=== PATIENT | male | born 1930 ===

== ENCOUNTER 2017-09-13 09:58 | Inpatient (IN) ==
[2017-09-13] MEDS ORDERED: ceFAZolin 2 GM Premix Inj 2 GM/50 ML PIGGYBACK IV.SIG ONE ×2 (10:04→11:11)
[2017-09-13] MEDS ORDERED: Diphtheria/Tetanus/Pertussis Vaccine Inj 0.5 ML Syringe IM ONE (10:04)
[2017-09-13 10:21] LABS: Baso # (Auto) 0.1 th/mm3 (0.0-0.2); Eos # (Auto) 0.2 th/mm3 (0.0-0.4); Eos % (Auto) 3.2 % (0.0-4.0); Hematocrit 39.1 % (39.0-51.0); Hemoglobin 13.5 gm/dL (13.0-17.0); Lymph # (Auto) 1.7 th/mm3 (1.0-4.8); Lymph % (Auto) 23.9 % (9.0-44.0); Mean Corpuscular HGB Conc 34.5 % (32.0-36.0); Mono # (Auto) 0.8 th/mm3 (0.0-0.9); Mono % (Auto) 11.3 % (0.0-8.0); Neut # (Auto) 4.4 th/mm3 (1.8-7.7); Neut % (Auto) 60.6 % (16.0-70.0); Platelet Count 189 th/mm3 (150-450); Red Blood Count 4.35 mil/mm3 (4.50-5.90); Red Cell Distribution Width 14.1 % (11.6-17.2); White Blood Count 7.3 th/mm3 (4.0-11.0)
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
[2017-09-13 10:39] LABS: Activated Partial Thrombo Time 25.2 sec (24.3-30.1); INR 1.1 Ratio; Prothrombin Time 10.9 sec (9.8-11.6)
[2017-09-13] MEDS ORDERED: Morphine Inj 4 MG/ML Vial IV.PUSH PRN (10:56)
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
[2017-09-13] MEDS ORDERED: Dextrose 50% in Water 50 ML Vial IV.PUSH PRN (11:08)
--- NOTE | 2017-09-13 11:11 | P.PNPOD ---
Subjective Interval history: Spoke with trauma regarding patient details. Physical Exam Vital signs: Vital Signs 09/13/17 10:10 Pulse Oximetry 98 Intake & Output 09/12/17 09/13/17 09/13/17 18:59 06:59 18:59 Weight 79.379 kg Medications and Allergies Active Medications: Active Medications Hydrocodone Bitart/Acetaminophen ([place] 5/325) 1 tab PO Q4H PRN PRN Reason: Pain 1-5 Chlorhexidine Gluconate (Chlorhexidine 2% Cloth) 3 pack TOPICAL DAILY@0400 ADA Stop: 09/19/17 03:59 Chlorhexidine Gluconate (Chlorhexidine 2% Cloth) 3 pack TOPICAL DAILY@0400 PRN PRN Reason: Extra cloth needed Stop: 09/19/17 03:59 Docusate Sodium (Colace) 100 mg PO BID ADA Enalaprilat (Vasotec Inj) 1.25 mg IV.PUSH Q8H PRN PRN Reason: Blood pressure 180/95 Sodium Chloride (Ns Inj) 1,000 mls @ 100 mls/hr IV.CONT .Q10H ADA Morphine Sulfate (Morphine Inj) 2 mg IV.PUSH Q1H PRN PRN Reason: Break through pain Ondansetron HCl (Zofran Inj) 4 mg IV.PUSH Q6H PRN PRN Reason: NAUSEA OR VOMITING Sodium Chloride (Ns Flush) 2 ml IV.FLUSH UNSCH PRN PRN Reason: FLUSH AFTER USING IV ACCESS Allergies Allergy/AdvReac Type Severity Reaction Status Date / Time No Allergy Information Allergy Unverified 09/13/17 10:01 Available Results - Labs CBC & Chem 7: 09/13/17 10:05 Laboratory Results - last 24 hr 09/13/17 09/13/17 09/13/17 10:05 10:05 10:05 WBC 7.3 RBC 4.35 L Hgb 13.5 POC Hgb (Calc) 12.6 L Hct 39.1 POC Hct 37.0 L MCV 90.0 MCH 31.0 MCHC 34.5 RDW 14.1 Plt Count 189 MPV 10.0 Neut % (Auto) 60.6 Lymph % (Auto) 23.9 [place] % (Auto) 11.3 H Eos % (Auto) 3.2 Baso % (Auto) 1.0 Neut # (Auto) 4.4 Lymph # (Auto) 1.7 Winston # (Auto) 0.8 Eos # (Auto) 0.2 Baso # (Auto) 0.1 WBC Differential . Differential Comment Auto diff final PT 10.9 INR 1.1 APTT 25.2 POC Sodium 135 L POC Potassium 5.5 H POC Chloride 102 POC BUN 29 H POC Creatinine 1.1 POC Glucose 182 H Blood Type MTS Gel Crossmatch 09/13/17 10:05 WBC RBC Hgb POC Hgb (Calc) Hct POC Hct MCV MCH MCHC RDW Plt Count MPV Neut % (Auto) Lymph % (Auto) [place] % (Auto) Eos % (Auto) Baso % (Auto) Neut # (Auto) Lymph # (Auto) Winston # (Auto) Eos # (Auto) Baso # (Auto) WBC Differential Differential Comment PT INR APTT POC Sodium POC Potassium POC Chloride POC BUN POC Creatinine POC Glucose Blood Type A Negative MTS Gel Crossmatch See Detail - Imaging Impressions Ankle CT 09/13/17 00:00 CONCLUSION: 1. Ankle mortise intact. 2. Laceration of the soft tissues of the distal leg and hindfoot medially. 3. Avulsion fractures from the lateral calcaneus and cuboid near the calcaneocuboid joint. Foot CT 09/13/17 00:00 CONCLUSION: 1. Small avulsion fractures of the lateral calcaneus and cuboid near the calcaneocuboid joint. 2. Mildly displaced fracture through the distal lateral cuboid extending into the tarsometatarsal joints. 3. Transverse fracture through the proximal fifth metatarsal shaft as well as lateral avulsion fracture of the proximal fifth metatarsal. 4. Slightly comminuted fracture proximal fourth metatarsal with probable tiny avulsion fracture of the lateral cuneiform. 5. No dislocation at the tarsometatarsal joints. Chest X-Ray 09/13/17 10:01 CONCLUSION: No acute disease Pelvis X-Ray 09/13/17 10:01 CONCLUSION: No acute fracture Abdomen/Pelvis CT 09/13/17 10:07 CONCLUSION: 1. No acute abdominal visceral injury. 2. Right renal cyst, bladder diverticulum and left inguinal hernia. Cervical Spine CT 09/13/17 10:07 CONCLUSION: 1. Multilevel degenerative changes. 2. No fracture. Chest CT 09/13/17 10:07 CONCLUSION: 1. No acute thoracic injury Head CT 09/13/17 10:07 CONCLUSION: 1. No acute findings. Cortical volume loss. . Tibia/Fibula X-Ray 09/13/17 10:07 CONCLUSION: Lower right leg laceration with probable avulsion fractures below the lateral malleolus. Lateral metatarsal fracture incompletely evaluated. Assessment and Plan - Plan To OR 330 pm for I&D Right leg, ankle, and foot with possible exfix Consultation to follow
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
[2017-09-13] MEDS: Sod Chloride 0.9% Inj 1,000 ML IV.CONT SCH ×2 (11:54→21:21)
[2017-09-13] MEDS ORDERED: Glycopyrrolate Inj 1 MG/5 ML Syringe IV.PUSH ONE (12:00)
[2017-09-13] MEDS ORDERED: Lidocaine PF 1% Inj 5 ML Syringe INFILTRATN ONE (12:00)
[2017-09-13] MEDS ORDERED: Phenylephrine/NS 1000 MCG/10ML Syringe IV.PUSH ONE (12:00)
[2017-09-13] MEDS ORDERED: Neostigmine Inj 5 MG/5 ML Syringe IV.PUSH ONE (12:00)
--- NOTE | 2017-09-13 12:49 | XR ---
EXAM DATE: 09/13/2017 12:44 PM EDT AGE/SEX: 89 years / Male INDICATIONS: Right foot pain. Trauma alert. CLINICAL DATA: This is the patient's subsequent encounter. Patient reports that signs and symptoms h ave been present for 1 day and indicates a pain score of 9/10. MEDICAL/SURGICAL HISTORY: Non-responsive. Non-responsive. COMPARISON: [facility], TIBIA FIBULA RIGHT 2V, 09/13/2017. . FINDINGS: 2 views of the foot demonstrate soft tissue and bony injury to the distal aspect of the great toe. Th e canal appears to be partially avulsed and there is suggestion of a comminuted fracture through the distal phalanx with intra-articular extension medially. CONCLUSION: 1. Soft tissue and bony trauma to the distal aspect of the great toe as above. 2. Comminuted fracture of the distal phalanx with medial intra-articular extension. Partial avulsion of the nail Electronically signed by: Souleymane Mathews MD 09/13/2017 12:48 PM EDT
[2017-09-13] MEDS: Insulin NovoLIN Regular Correctional Sugar Inj SQ SCH ×2 (13:10→19:24)
[2017-09-13] MEDS ORDERED: ceFAZolin 2 GM/NS 100 ML IV; Q8H IV.SIG ONE ×2 (16:00)
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
--- NOTE | 2017-09-13 17:38 | P.BOP ---
- Preoperative Diagnosis (1) Fracture of fifth metatarsal bone of right foot (2) Fracture of cuboid bone of right foot with routine healing (3) Laceration of right lower leg with foreign body - Postoperative Diagnosis (1) Fracture of cuboid bone of right foot with routine healing (2) Fracture of fifth metatarsal bone of right foot (3) Laceration of foot, right (4) Laceration of right lower leg with foreign body Date of procedure: 09/13/17 Procedure: 1. Irrigation and debridement right foot with closure of complex laceration 2. External fixation right foot fractures Right anterior lower leg with degloving injury originating medially, and traveling laterally across anterior ankle area in superficial fat layer. No exposed bone noted within degloved area. Deep vessels remain intact. No gross contamination or debris noted. Tissue appears viable and bleedings readily. No large vessel involvement noted. Degloving continues distally and medially to medial rearfoot area, but not including any deep tendinous or neurovascular structures here. There is another puncture area with mild degloving to dorsal forefoot extending from dorsal 1st interspace to dorsal 3rd interspace area. Lateral aspect of forefoot, midfoot, and hindfoot remain closed, and this is where fractures are noted. Degloved areas copiously irrigated with 12L normal saline with gentamicin and excisional debridement of nonviable tissue was performed with #15 blade, curette , and rongeur down to level of healthy bleeding subcutaneous tissue to the large medial/anterior degloved area, as well as the separate area of the dorsal forefoot. Complex closure performed with 2-0 nylon to all degloved areas. No gross contamination noted. All tissue appeared viable. C-arm guidance utilized to place 4.0mm half pin into lateral calcaneus, and 3.0 to 4.0 mm into midshaft 5th metatarsal laterally and dorsal/lateral lateral cuneiform, respectively. Reduction of fracture to 5th metatarsal base and adequate distraction at calcaneocuboid joint visualized under c-arm and external fixator held in place to achieve reduction/stabilization. Small wound vac placed along incision/degloved area margins to assist in reduction of space. Will be left on x 24 hours. Dressing with xeroform, 4x4, abd, cast padding, and short posterior splint with heel offloaded placed to right lower extremity. Will assess tissue for viability in the coming days. Plan to remove wound vac after 24 hours. Do not anticipate further surgery required. Continue IV antibiotics. Will need oral broad spectrum x 2 weeks upon discharge. Will need home health for pin site care and dressing changes upon discharge. Nonweightbearing right lower extremity. May need rehab placement to comply. Implants: see implant log Synthes small exfix Anesthesia: GETA Surgeon: Irina Jara DPM Revolving Inventory Clerk: staff Estimated blood loss (mL): 100 Pathology: none sent Condition: stable Disposition: PACU
[2017-09-13] MEDS ORDERED: *Meperidine Inj 25 MG/ML Vial PERIprocedural Use ONLY ONE (17:43)
[2017-09-13] MEDS ORDERED: fentaNYL Citrate Inj 100 MCG/2 ML Ampul ONE (17:44)
--- NOTE | 2017-09-13 18:17 | XR ---
EXAM DATE: 09/13/2017 6:12 PM EDT AGE/SEX: 87 years / Male INDICATIONS: External fixator placement right ankle. CLINICAL DATA: This is the patient's subsequent encounter. Patient reports that signs and symptoms h ave been present for 1 day and indicates a pain score of Nonresponsive. MEDICAL/SURGICAL HISTORY: . Trauma. None. COMPARISON: [facility], FOOT LIMITED RIGHT 2V, 09/13/2017. . FINDINGS: 2 views in the operating room show external fixation placement across the calcaneus, cuboid and fifth metatarsal base fractures. Alignment is near-anatomic. No evidence of an acute complication. CONCLUSION: External fixation placement of the right foot as above. No evidence of an acute complication. Electronically signed by: Bry Rosa MD 09/13/2017 6:16 PM EDT
[2017-09-13] MEDS ORDERED: Famotidine 20 MG Tablet PO SCH (21:00)
[2017-09-13] MEDS: Ramipril 5 MG Capsule PO SCH (21:21)
[2017-09-13] MEDS: Latanoprost 0.005% Opth Drops 2.5 ML Bottle EACH EYE SCH ×4 (22:25→23:16)
[2017-09-13] MEDS: ceFAZolin 2 GM Premix Inj 2 GM/50 ML PIGGYBACK IV.SIG SCH (23:15)
--- NOTE | 2017-09-13 23:39 | XR ---
EXAM DATE: 09/13/2017 11:31 PM EDT AGE/SEX: 87 years / Male INDICATIONS: Post op right foot ex-fix. CLINICAL DATA: This is the patient's initial encounter. Patient reports that signs and symptoms have been present for 1 day and indicates a pain score of 3/10. MEDICAL/SURGICAL HISTORY: None. None. COMPARISON: [facility], FOOT LIMITED RIGHT 2V, 09/13/2017. . FINDINGS: There is bandage artifact which obscures osseous detail. External fixation hardware is seen at the [place] of the calcaneus, tarsal bones, and across the fifth metatarsal. There is a transverse fracture t hrough the base of the fifth metatarsal, and first distal phalanx fracture. CONCLUSION: External fixation hardware placement. Electronically signed by: Marquez Mendez MD 09/13/2017 11:38 PM EDT
[2017-09-14] MEDS ORDERED: Chlorhexidine Gluconate 2% 1 Pack (2 Cloths) TOPICAL PRN (04:00)
[2017-09-14] MEDS: Chlorhexidine Gluconate 2% 1 Pack (2 Cloths) TOPICAL SCH (05:03)
[2017-09-14 05:12] LABS: Baso % (Auto) 0.4 % (0.0-2.0); Eos # (Auto) 0.1 th/mm3 (0.0-0.4); Hematocrit 31.5 % (39.0-51.0); Hemoglobin 10.9 gm/dL (13.0-17.0); Lymph # (Auto) 1.3 th/mm3 (1.0-4.8); Lymph % (Auto) 15.7 % (9.0-44.0); Mean Corpuscular HGB Conc 34.6 % (32.0-36.0); Mean Corpuscular Hemoglobin 31.9 pg (27.0-34.0); Mean Corpuscular Volume 92.2 fL (80.0-100.0); Mean Platelet Volume 10.4 fL (7.0-11.0); Mono % (Auto) 12.4 % (0.0-8.0); Neut # (Auto) 5.7 th/mm3 (1.8-7.7); Neut % (Auto) 70.5 % (16.0-70.0); Platelet Count 145 th/mm3 (150-450); Red Blood Count 3.41 mil/mm3 (4.50-5.90)
[2017-09-14 05:34] LABS: Carbon Dioxide 23.9 meq/L (21.0-32.0); Potassium 4.6 meq/L (3.5-5.1)
[2017-09-14] MEDS: Insulin NovoLIN Regular Correctional Sugar Inj SQ SCH ×4 (06:58→23:12)
[2017-09-14] MEDS ORDERED: CANAGLIFLOZIN 100 MG PO SCH (09:00)
[2017-09-14] MEDS: Ramipril 5 MG Capsule PO SCH ×2 (10:24→20:09)
[2017-09-14] MEDS: Docusate Sodium 100 MG Capsule PO SCH ×2 (10:25→20:09)
[2017-09-14] MEDS: ceFAZolin 2 GM Premix Inj 2 GM/50 ML PIGGYBACK IV.SIG SCH ×2 (10:25→16:54)
[2017-09-14] MEDS: Famotidine 20 MG Tablet PO SCH ×2 (10:26→20:09)
--- NOTE | 2017-09-14 15:59 | ECG ---
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
[2017-09-14] MEDS: Sod Chloride 0.9% Inj 1,000 ML IV.CONT SCH ×2 (16:53→23:08)
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
--- NOTE | 2017-09-14 19:18 | P.PNPOD ---
Subjective Interval history: s/p I&D R leg degloving injury and external fixation right foot 09/13/17 Dr Jara Resting well, having pain. Physical Exam Vital signs: Vital Signs 09/13/17 19:36 09/13/17 20:00 09/14/17 00:00 Temperature 97.5 F L 97.8 F Pulse Rate 69 80 Respiratory Rate 20 10 L Blood Pressure 139/63 128/59 L Pulse Oximetry 96 98 99 09/14/17 04:00 09/14/17 07:55 09/14/17 08:00 Temperature 98 F 98.7 F Pulse Rate 74 80 Respiratory Rate 14 14 Blood Pressure 154/65 H 157/72 H Pulse Oximetry 98 98 97 09/14/17 10:00 09/14/17 10:48 09/14/17 12:00 Temperature 97.8 F Pulse Rate 88 80 90 Respiratory Rate 14 Blood Pressure 148/68 H Pulse Oximetry 94 L 09/14/17 14:00 09/14/17 16:00 Temperature 98.7 F Pulse Rate 104 H 96 H Respiratory Rate 25 H Blood Pressure 200/86 H Pulse Oximetry 93 L Intake & Output 09/14/17 09/14/17 09/15/17 06:59 18:59 06:59 Intake Total 3304 / 3304 50 / 50 Output Total 575 / 575 Balance 2729 / 2729 50 / 50 Weight 85.2 kg Intake: IV 1050 / 1050 50 / 50 NS Inj 1,000 ML @ 100 mls/hr IV 1000 / 1000 .CONT .Q10H ADA Rx#:[id number] Ancef 2 GM Premix Inj 2 gm In 50 / 50 50 / 50 50 ml @ 100 mls/hr IV.SIG Q8H ADA Rx#:[id number] Oral 560 / 560 Other 1694 / 1694 Output: Urine 500 / 500 Estimated Blood Loss 25 / 25 Wound Vac Amount 50 / 50 Right Leg 50 / 50 Other: Mode Setting Right Leg Continuous Continuous # Bowel Movements 0 Narrative: Right lower anterior/medial leg and ankle wound vac intact and functioning properly. Removed wound vac and applied xeroform, 4x4, abd x 2, cast padding, eric. Left remainder of bandage intact. Neurovascularly intact with sensation and capillary refill to digits right foot. Mild bloody strikethrough to bandage Medications and Allergies Active Medications: Active Medications Hydrocodone Bitart/Acetaminophen ([place] 5/325) 1 tab PO Q4H PRN PRN Reason: Pain 1-5 Hydrocodone Bitart/Acetaminophen ([place] 7.5/325) 1 tab PO Q4H PRN PRN Reason: Acute Pain Last Admin: 09/14/17 16:10 Dose: 1 tab Al Hydroxide/Mg Hydroxide (Milk Of Kkoo Liq) 30 ml PO BID [facility] Last Admin: 09/14/17 10:27 Dose: 30 ml Atorvastatin Calcium (Lipitor) 20 mg PO DAILY [facility] Last Admin: 09/14/17 10:25 Dose: 20 mg Chlorhexidine Gluconate (Chlorhexidine 2% Cloth) 3 pack TOPICAL DAILY@0400 [facility] Stop: 09/19/17 03:59 Last Admin: 09/14/17 05:03 Dose: 3 pack Chlorhexidine Gluconate (Chlorhexidine 2% Cloth) 3 pack TOPICAL DAILY@0400 PRN PRN Reason: Extra cloth needed Stop: 09/19/17 03:59 Dextrose (D50w Vial) 50 ml IV.PUSH UNSCH PRN PRN Reason: PER HYPOGLYCEMIA PROTOCOL Docusate Sodium (Colace) 100 mg PO BID [facility] Last Admin: 09/14/17 10:25 Dose: 100 mg Enalaprilat (Vasotec Inj) 1.25 mg IV.PUSH Q8H PRN PRN Reason: Blood pressure 180/95 Last Admin: 09/13/17 12:07 Dose: 1.25 mg Enoxaparin Sodium (Lovenox Inj) 40 mg SQ DAILY [facility] Famotidine (Pepcid) 10 mg PO BID [facility] Last Admin: 09/14/17 10:26 Dose: 10 mg Glucagon (Glucagon Inj) 1 mg OTHER PRN PRN PRN Reason: for Hypoglycemia Protocol Glyburide (Diabeta) 5 mg PO DAILY [facility] Last Admin: 09/14/17 10:25 Dose: 5 mg Sodium Chloride (Ns Inj) 1,000 mls @ 100 mls/hr IV.CONT .Q10H [facility] Last Admin: 09/14/17 16:53 Dose: Not Given Cefazolin Sodium 2,000 mg/ (Sodium Chloride) 100 mls @ 200 mls/hr IV.SIG Q8H [facility] Insulin Human Regular (Novolin R Correctional Sugar Inj) 0 units SQ Q6HR [facility]; Protocol Last Admin: 09/14/17 15:04 Dose: 2 units Lactulose (Lactulose Liq) 30 ml PO DAILY PRN PRN Reason: CONSTIPATION Latanoprost (Xalatan 0.005% Opth Drops) 1 drop EACH EYE DAILY@1800 [facility] Last Admin: 09/13/17 23:16 Dose: 1 drop [facility]) [facility] Metoprolol Succinate (Toprol Xl) 25 mg PO TID [facility] Last Admin: 09/14/17 15:06 Dose: 25 mg Morphine Sulfate (Morphine Inj) 2 mg IV.PUSH Q1H PRN PRN Reason: Break through pain Last Admin: 09/13/17 12:07 Dose: 2 mg Ondansetron HCl (Zofran Inj) 4 mg IV.PUSH Q6H PRN PRN Reason: NAUSEA OR VOMITING Last Admin: 09/13/17 12:07 Dose: 4 mg Patient Own: ( Canagliflozin [ Invokana] 100 Mg) 0 each PO DAILY [facility] Ramipril (Altace) 10 mg PO BID [facility] Last Admin: 09/14/17 10:24 Dose: 10 mg Sodium Chloride (Ns Flush) 2 ml IV.FLUSH UNSCH PRN PRN Reason: FLUSH AFTER USING IV ACCESS Allergies Allergy/AdvReac Type Severity Reaction Status Date / Time No Known Allergies Allergy Unverified 09/13/17 11:42 Home Medications Medication Instructions Recorded Confirmed Type canagliflozin [Invokana] 100 mg PO DAILY 09/13/17 09/13/17 History glyburide 5 mg PO DAILY 09/13/17 09/13/17 History latanoprost [Xalatan] 1 drp OPHTHALMIC (EYE) QPM 09/13/17 09/13/17 History metformin 1,000 mg PO BID 09/13/17 09/13/17 History metoprolol succinate 25 mg PO TID 09/13/17 09/13/17 History omeprazole magnesium [Prilosec] 10 mg PO BID 09/13/17 09/13/17 History ramipril 10 mg PO BID 09/13/17 09/13/17 History rosuvastatin [Crestor] 10 mg PO DAILY 09/13/17 09/13/17 History Results - Labs CBC & Chem 7: 09/14/17 04:05 09/14/17 04:05 Laboratory Results - last 24 hr 09/14/17 09/14/17 09/14/17 00:08 04:05 04:05 WBC 8.0 RBC 3.41 L Hgb 10.9 L D Hct 31.5 L MCV 92.2 MCH 31.9 MCHC 34.6 RDW 14.0 Plt Count 145 L MPV 10.4 Neut % (Auto) 70.5 H Lymph % (Auto) 15.7 [place] % (Auto) 12.4 H Eos % (Auto) 1.0 Baso % (Auto) 0.4 Neut # (Auto) 5.7 Lymph # (Auto) 1.3 [place] # (Auto) 1.0 H Eos # (Auto) 0.1 Baso # (Auto) 0.0 WBC Differential . Differential Comment Auto diff final Sodium 141 Potassium 4.6 Chloride 108 H Carbon Dioxide 23.9 Anion Gap 9 BUN 19 H Creatinine 1.22 Estimated GFR 56 L POC Glucose 260 H Random Glucose 189 H Calcium 8.0 L 09/14/17 12:26 WBC RBC Hgb Hct MCV MCH MCHC RDW Plt Count MPV Neut % (Auto) Lymph % (Auto) [place] % (Auto) Eos % (Auto) Baso % (Auto) Neut # (Auto) Lymph # (Auto) [place] # (Auto) Eos # (Auto) Baso # (Auto) WBC Differential Differential Comment Sodium Potassium Chloride Carbon Dioxide Anion Gap BUN Creatinine Estimated GFR POC Glucose 167 H Random Glucose Calcium - Imaging Impressions Foot X-Ray 09/13/17 00:00 CONCLUSION: External fixation hardware placement. Assessment and Plan - Assessment (1) Laceration of foot, right Code(s): S91.311A - Laceration without foreign body, right foot, initial encounter Status: Acute (2) Fracture of fifth metatarsal bone of right foot Code(s): S92.351A - Displaced fracture of fifth metatarsal bone, right foot, initial encounter for closed fracture Status: Acute (3) Fracture of cuboid bone of right foot with routine healing Code(s): S92.211D - Displaced fracture of cuboid bone of right foot, subsequent encounter for fracture with routine healing Status: Acute (4) Laceration of right lower leg with foreign body Code(s): S81.821A - Laceration with foreign body, right lower leg, initial encounter Status: Acute - Plan s/p I&D Right leg, ankle, and foot with exfix right foot Discontinued wound vac today and applied DSD right foot. Plan to change entire bandage on Tuesday and order new clean splint to be applied Ok with discharge with anticoagulant and 7 days oral broad spectrum antibiotics on Tuesday at the earliest. Patient may need rehab placement based on ability to progress with PT. Will need twice weekly dressing changes upon discharge with pin site care ( betadine swab), xeroform, 4x4, abd, cast padding, and xeroform, 4x4, abd, cast padding to all other surgical sites, followed by re-application of short posterior splint. Nonweightbearing right lower extremity. Will plan to remove external fixator in approximately 6-8 weeks pending serial xrays as outpatient.
[2017-09-14] MEDS: Latanoprost 0.005% Opth Drops 2.5 ML Bottle EACH EYE SCH (20:11)
--- NOTE | 2017-09-14 22:43 | ECG ---
Date Performed: 09/13/2017 Time Performed: 13:03:24 PTAGE: 87 years EKG: Sinus rhythm . 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
[2017-09-15] MEDS: ceFAZolin Inj 2,000 MG in Sodium Chlor 0.9% Inj 80 ML IV.SIG SCH ×3 (01:13→19:04)
[2017-09-15 04:54] LABS: Baso # (Auto) 0.1 th/mm3 (0.0-0.2); Eos # (Auto) 0.2 th/mm3 (0.0-0.4); Eos % (Auto) 3.1 % (0.0-4.0); Hematocrit 27.1 % (39.0-51.0); Hemoglobin 9.6 gm/dL (13.0-17.0); Lymph # (Auto) 1.2 th/mm3 (1.0-4.8); Lymph % (Auto) 16.8 % (9.0-44.0); Mean Corpuscular HGB Conc 35.4 % (32.0-36.0); Mean Corpuscular Hemoglobin 32.4 pg (27.0-34.0); Mean Corpuscular Volume 91.5 fL (80.0-100.0); Mean Platelet Volume 10.3 fL (7.0-11.0); Mono # (Auto) 0.9 th/mm3 (0.0-0.9); Mono % (Auto) 11.7 % (0.0-8.0); Neut % (Auto) 67.4 % (16.0-70.0); Platelet Count 125 th/mm3 (150-450); Red Blood Count 2.97 mil/mm3 (4.50-5.90); Red Cell Distribution Width 13.8 % (11.6-17.2); White Blood Count 7.3 th/mm3 (4.0-11.0)
[2017-09-15 05:23] LABS: Albumin 2.9 g/dL (3.4-5.0); Anion Gap 9 meq/L (5-15); Aspartate Aminotransferase 16 U/L (15-37); Blood Urea Nitrogen 18 mg/dL (7-18); Calcium 8.1 mg/dL (8.5-10.1); Carbon Dioxide 23.1 meq/L (21.0-32.0); Chloride 108 meq/L (98-107); Glomerular Filtration Rate 56 mL/min (>89); Glucose,Random 167 mg/dL (74-106); Potassium 4.3 meq/L (3.5-5.1); Sodium 140 meq/L (136-145)
[2017-09-15 05:25] LABS: Alanine Aminotransferase 10 U/L (12-78)
[2017-09-15 05:27] LABS: Alkaline Phosphatase 48 U/L (45-117); Total Protein 5.3 g/dL (6.4-8.2)
[2017-09-15] MEDS: Sod Chloride 0.9% Inj 1,000 ML IV.CONT SCH (06:10)
[2017-09-15] MEDS: Insulin NovoLIN Regular Correctional Sugar Inj SQ SCH ×2 (06:10→23:39)
[2017-09-15] MEDS ORDERED: Non-Formulary Drug (Metformin [Metformin] 1,000 MG) PO SCH (09:00)
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
[2017-09-15] MEDS: Enoxaparin Inj 40 MG/0.4 ML Syringe SQ SCH (10:50)
[2017-09-15] MEDS: Docusate Sodium 100 MG Capsule PO SCH ×2 (10:51→20:49)
[2017-09-15] MEDS: Ramipril 5 MG Capsule PO SCH ×2 (10:54→20:49)
[2017-09-15] MEDS: Famotidine 20 MG Tablet PO SCH ×2 (10:54→20:49)
--- NOTE | 2017-09-15 15:15 | P.PNPOD ---
Subjective Interval history: doing ok ok sat up got a little dizzy. foot pain controlled with [place] Physical Exam Vital signs: Vital Signs 09/14/17 16:00 09/14/17 20:00 09/15/17 00:00 Temperature 98.7 F 97.4 F L 98.9 F Pulse Rate 96 H 99 H 98 H Respiratory Rate 25 H 18 Blood Pressure 200/86 H 180/70 H 157/71 H Pulse Oximetry 93 L 96 95 09/15/17 01:23 09/15/17 03:55 09/15/17 04:00 Temperature 98.4 F Pulse Rate 95 H 81 88 Respiratory Rate 16 Blood Pressure 163/76 H Pulse Oximetry 94 L 09/15/17 08:00 09/15/17 12:00 Temperature 97.9 F 97.9 F Pulse Rate 96 H 76 Respiratory Rate 16 16 Blood Pressure 180/89 H 187/80 H Pulse Oximetry 95 96 Intake & Output 09/14/17 09/15/17 09/15/17 18:59 06:59 18:59 Intake Total 1050 / 1050 1100 / 1100 Output Total 800 / 800 Balance 1050 / 1050 300 / 300 Weight 86.3 kg Intake: IV 1050 / 1050 1100 / 1100 NS Inj 1,000 ML @ 100 mls/hr IV 1000 / 1000 1000 / 1000 .CONT .Q10H [facility] Rx#:[id number] Ancef 2 GM Premix Inj 2 gm In 50 / 50 50 ml @ 100 mls/hr IV.SIG Q8H [facility] Rx#:[id number] Ancef Inj 2,000 MG In NS Inj 80 100 / 100 ML @ 200 mls/hr IV.SIG Q8H [facility] Rx#:[id number] Output: Urine 800 / 800 Other: Mode Setting Right Leg Continuous - Routine Extremities Exam Comments: RT LE: Able to move toes, sensation intact, ex fix and splint intact, no obvious strikethrough on bandage. Medications and Allergies Active Medications: Active Medications Hydrocodone Bitart/Acetaminophen ([place] 5/325) 1 tab PO Q4H PRN PRN Reason: Pain 1-5 Hydrocodone Bitart/Acetaminophen ([place] 7.5/325) 1 tab PO Q4H PRN PRN Reason: Acute Pain Last Admin: 09/15/17 10:52 Dose: 1 tab Al Hydroxide/Mg Hydroxide (Milk Of Magnesia Liq) 30 ml PO BID [facility] Last Admin: 09/15/17 10:53 Dose: 30 ml Atorvastatin Calcium (Lipitor) 20 mg PO DAILY [facility] Last Admin: 09/15/17 10:51 Dose: 20 mg Chlorhexidine Gluconate (Chlorhexidine 2% Cloth) 3 pack TOPICAL DAILY@0400 [facility] Stop: 09/19/17 03:59 Last Admin: 09/14/17 05:03 Dose: 3 pack Chlorhexidine Gluconate (Chlorhexidine 2% Cloth) 3 pack TOPICAL DAILY@0400 PRN PRN Reason: Extra cloth needed Stop: 09/19/17 03:59 Dextrose (D50w Vial) 50 ml IV.PUSH UNSCH PRN PRN Reason: PER HYPOGLYCEMIA PROTOCOL Docusate Sodium (Colace) 100 mg PO BID [facility] Last Admin: 09/15/17 10:51 Dose: 100 mg Enalaprilat (Vasotec Inj) 1.25 mg IV.PUSH Q8H PRN PRN Reason: Blood pressure 180/95 Last Admin: 09/13/17 12:07 Dose: 1.25 mg Enoxaparin Sodium (Lovenox Inj) 40 mg SQ DAILY [facility] Last Admin: 09/15/17 10:50 Dose: 40 mg Famotidine (Pepcid) 10 mg PO BID [facility] Last Admin: 09/15/17 10:54 Dose: 10 mg Glucagon (Glucagon Inj) 1 mg OTHER PRN PRN PRN Reason: for Hypoglycemia Protocol Glyburide (Diabeta) 5 mg PO DAILY [facility] Last Admin: 09/15/17 10:54 Dose: 5 mg Cefazolin Sodium 2,000 mg/ (Sodium Chloride) 100 mls @ 200 mls/hr IV.SIG Q8H [facility] Last Admin: 09/15/17 10:53 Dose: 200 mls/hr Insulin Human Regular (Novolin R Correctional Sugar Inj) 0 units SQ Q6HR [facility]; Protocol Last Admin: 09/15/17 06:10 Dose: 2 units Lactulose (Lactulose Liq) 30 ml PO DAILY PRN PRN Reason: CONSTIPATION Latanoprost (Xalatan 0.005% Opth Drops) 1 drop EACH EYE DAILY@1800 [facility] Last Admin: 09/14/17 20:11 Dose: 1 drop [facility] ([facility] Last Admin: 09/15/17 10:51 Dose: 1,000 mg Metoprolol Succinate (Toprol Xl) 25 mg PO TID [facility] Last Admin: 09/15/17 15:06 Dose: 25 mg Morphine Sulfate (Morphine Inj) 2 mg IV.PUSH Q1H PRN PRN Reason: Break through pain Last Admin: 09/13/17 12:07 Dose: 2 mg Ondansetron HCl (Zofran Inj) 4 mg IV.PUSH Q6H PRN PRN Reason: NAUSEA OR VOMITING Last Admin: 09/13/17 12:07 Dose: 4 mg Patient Own: ( Canagliflozin [ Invokana] 100 Mg) 0 each PO DAILY [facility] Ramipril (Altace) 10 mg PO BID [facility] Last Admin: 09/15/17 10:54 Dose: 10 mg Sodium Chloride (Ns Flush) 2 ml IV.FLUSH UNSCH PRN PRN Reason: FLUSH AFTER USING IV ACCESS Allergies Allergy/AdvReac Type Severity Reaction Status Date / Time No Known Allergies Allergy Unverified 09/13/17 11:42 Home Medications Medication Instructions Recorded Confirmed Type canagliflozin [Invokana] 100 mg PO DAILY 09/13/17 09/13/17 History glyburide 5 mg PO DAILY 09/13/17 09/13/17 History latanoprost [Xalatan] 1 drp OPHTHALMIC (EYE) QPM 09/13/17 09/13/17 History metformin 1,000 mg PO BID 09/13/17 09/13/17 History metoprolol succinate 25 mg PO TID 09/13/17 09/13/17 History omeprazole magnesium [Prilosec] 10 mg PO BID 09/13/17 09/13/17 History ramipril 10 mg PO BID 09/13/17 09/13/17 History rosuvastatin [Crestor] 10 mg PO DAILY 09/13/17 09/13/17 History Results - Labs CBC & Chem 7: 09/15/17 03:38 09/15/17 03:38 Laboratory Results - last 24 hr 09/14/17 09/15/17 09/15/17 23:04 03:38 03:38 WBC 7.3 RBC 2.97 L Hgb 9.6 L Hct 27.1 L MCV 91.5 MCH 32.4 MCHC 35.4 RDW 13.8 Plt Count 125 L MPV 10.3 Neut % (Auto) 67.4 Lymph % (Auto) 16.8 [place] % (Auto) 11.7 H Eos % (Auto) 3.1 Baso % (Auto) 1.0 Neut # (Auto) 5.0 Lymph # (Auto) 1.2 [place] # (Auto) 0.9 Eos # (Auto) 0.2 Baso # (Auto) 0.1 WBC Differential . Differential Comment Auto diff final Sodium 140 Potassium 4.3 Chloride 108 H Carbon Dioxide 23.1 Anion Gap 9 BUN 18 Creatinine 1.23 Estimated GFR 56 L POC Glucose 236 H Random Glucose 167 H Calcium 8.1 L Total Bilirubin 0.3 AST 16 ALT 10 L Alkaline Phosphatase 48 Total Protein 5.3 L Albumin 2.9 L 09/15/17 05:19 WBC RBC Hgb Hct MCV MCH MCHC RDW Plt Count MPV Neut % (Auto) Lymph % (Auto) [place] % (Auto) Eos % (Auto) Baso % (Auto) Neut # (Auto) Lymph # (Auto) [place] # (Auto) Eos # (Auto) Baso # (Auto) WBC Differential Differential Comment Sodium Potassium Chloride Carbon Dioxide Anion Gap BUN Creatinine Estimated GFR POC Glucose 198 H Random Glucose Calcium Total Bilirubin AST ALT Alkaline Phosphatase Total Protein Albumin Microbiology 09/14/17 18:45 Wound - Ankle Gram Stain - Final 09/14/17 18:45 Wound - Ankle Wound Culture - Preliminary No growth in 24 hours Assessment and Plan - Assessment (1) Laceration of foot, right Code(s): S91.311A - Laceration without foreign body, right foot, initial encounter Status: Acute (2) Fracture of fifth metatarsal bone of right foot Code(s): S92.351A - Displaced fracture of fifth metatarsal bone, right foot, initial encounter for closed fracture Status: Acute (3) Fracture of cuboid bone of right foot with routine healing Code(s): S92.211D - Displaced fracture of cuboid bone of right foot, subsequent encounter for fracture with routine healing Status: Acute (4) Laceration of right lower leg with foreign body Code(s): S81.821A - Laceration with foreign body, right lower leg, initial encounter Status: Acute - Plan Continue PT and pain management. Will need rehab, will take bandage down tomorrow and advise. Anticipate clearance for rehab in 2-3 days.
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
[2017-09-15] MEDS: Chlorhexidine Gluconate 2% 1 Pack (2 Cloths) TOPICAL SCH (19:03)
[2017-09-15] MEDS: Latanoprost 0.005% Opth Drops 2.5 ML Bottle EACH EYE SCH (19:04)
[2017-09-16] MEDS: ceFAZolin Inj 2,000 MG in Sodium Chlor 0.9% Inj 80 ML IV.SIG SCH ×3 (00:34→18:34)
[2017-09-16 04:55] LABS: Baso % (Auto) 0.7 % (0.0-2.0); Eos # (Auto) 0.3 th/mm3 (0.0-0.4); Eos % (Auto) 4.8 % (0.0-4.0); Hematocrit 26.2 % (39.0-51.0); Hemoglobin 9.2 gm/dL (13.0-17.0); Lymph # (Auto) 1.3 th/mm3 (1.0-4.8); Lymph % (Auto) 18.1 % (9.0-44.0); Mean Corpuscular Hemoglobin 32.1 pg (27.0-34.0); Mean Corpuscular Volume 91.6 fL (80.0-100.0); Mean Platelet Volume 9.7 fL (7.0-11.0); Mono # (Auto) 0.8 th/mm3 (0.0-0.9); Mono % (Auto) 11.8 % (0.0-8.0); Neut # (Auto) 4.5 th/mm3 (1.8-7.7); Neut % (Auto) 64.6 % (16.0-70.0); Platelet Count 124 th/mm3 (150-450); Red Blood Count 2.86 mil/mm3 (4.50-5.90); Red Cell Distribution Width 13.9 % (11.6-17.2); White Blood Count 6.9 th/mm3 (4.0-11.0)
[2017-09-16 05:21] LABS: Calcium 8.2 mg/dL (8.5-10.1); Carbon Dioxide 27.7 meq/L (21.0-32.0); Potassium 4.4 meq/L (3.5-5.1)
[2017-09-16] MEDS: Insulin NovoLIN Regular Correctional Sugar Inj SQ SCH ×3 (06:51→18:23)
[2017-09-16] MEDS: Chlorhexidine Gluconate 2% 1 Pack (2 Cloths) TOPICAL SCH (06:52)
[2017-09-16] MEDS: Famotidine 20 MG Tablet PO SCH ×2 (10:35→20:28)
[2017-09-16] MEDS: Docusate Sodium 100 MG Capsule PO SCH ×2 (10:36→20:29)
[2017-09-16] MEDS: Enoxaparin Inj 40 MG/0.4 ML Syringe SQ SCH (10:37)
[2017-09-16] MEDS: Ramipril 5 MG Capsule PO SCH ×2 (10:40→20:29)
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
--- NOTE | 2017-09-16 17:24 | P.PNPOD ---
Subjective Interval history: Patient doing well seen bedside with family right foot pain controlled agreeable to rehab Physical Exam Vital signs: Vital Signs 09/15/17 20:00 09/16/17 00:00 09/16/17 02:35 Temperature 98.8 F 98.9 F Pulse Rate 75 76 Respiratory Rate 20 20 15 Blood Pressure 176/79 H 156/74 H Pulse Oximetry 97 94 L 09/16/17 04:00 09/16/17 08:00 09/16/17 12:00 Temperature 97.9 F 98 F 98.1 F Pulse Rate 75 18 L 72 Respiratory Rate 20 18 20 Blood Pressure 149/80 H 179/79 H 141/76 H Pulse Oximetry 95 96 Intake & Output 09/15/17 09/16/17 09/16/17 18:59 06:59 18:59 Intake Total 100 / 100 580 / 580 Output Total 650 / 650 Balance 100 / 100 -70 / -70 Intake: IV 100 / 100 200 / 200 Ancef Inj 2,000 MG In NS Inj 80 100 / 100 200 / 200 ML @ 200 mls/hr IV.SIG Q8H [facility] Rx#:[id number] Oral 380 / 380 Output: Urine 650 / 650 Other: # Voids 3 - Constitutional no acute distress - Neurological Alert and oriented x3 - Routine Extremities Exam Comments: Right lower extremity examined-laceration sites of anterior foot and ankle well coapted moderate fracture blisters noted no ischemic changes external fixator intact to lateral hindfoot and forefoot good alignment of ankle mild bruising and edema to forefoot hindfoot and ankle however no ischemic changes no signs of infection mild serosanguineous drainage noted from pin sites superficial pretibial abrasions appear to have clean red base no signs of infection Medications and Allergies Active Medications: Active Medications Hydrocodone Bitart/Acetaminophen ([place] 5/325) 1 tab PO Q4H PRN PRN Reason: Pain 1-5 Hydrocodone Bitart/Acetaminophen ([place] 7.5/325) 1 tab PO Q4H PRN PRN Reason: Acute Pain Last Admin: 09/16/17 16:51 Dose: 1 tab Al Hydroxide/Mg Hydroxide (Milk Of Magnesia Liq) 30 ml PO BID [facility] Last Admin: 09/16/17 10:37 Dose: 30 ml Atorvastatin Calcium (Lipitor) 20 mg PO DAILY [facility] Last Admin: 09/16/17 10:35 Dose: 20 mg Chlorhexidine Gluconate (Chlorhexidine 2% Cloth) 3 pack TOPICAL DAILY@0400 [facility] Stop: 09/19/17 03:59 Last Admin: 09/16/17 06:52 Dose: Not Given Chlorhexidine Gluconate (Chlorhexidine 2% Cloth) 3 pack TOPICAL DAILY@0400 PRN PRN Reason: Extra cloth needed Stop: 09/19/17 03:59 Dextrose (D50w Vial) 50 ml IV.PUSH UNSCH PRN PRN Reason: PER HYPOGLYCEMIA PROTOCOL Docusate Sodium (Colace) 100 mg PO BID [facility] Last Admin: 09/16/17 10:36 Dose: 100 mg Enalaprilat (Vasotec Inj) 1.25 mg IV.PUSH Q8H PRN PRN Reason: Blood pressure 180/95 Last Admin: 09/13/17 12:07 Dose: 1.25 mg Enoxaparin Sodium (Lovenox Inj) 40 mg SQ DAILY [facility] Last Admin: 09/16/17 10:37 Dose: 40 mg Famotidine (Pepcid) 10 mg PO BID [facility] Last Admin: 09/16/17 10:35 Dose: 10 mg Glucagon (Glucagon Inj) 1 mg OTHER PRN PRN PRN Reason: for Hypoglycemia Protocol Glyburide (Diabeta) 5 mg PO DAILY [facility] Last Admin: 09/16/17 10:36 Dose: 5 mg Cefazolin Sodium 2,000 mg/ (Sodium Chloride) 100 mls @ 200 mls/hr IV.SIG Q8H [facility] Last Admin: 09/16/17 10:48 Dose: 200 mls/hr Insulin Human Regular (Novolin R Correctional Sugar Inj) 0 units SQ Q6HR [facility]; Protocol Last Admin: 09/16/17 13:26 Dose: 4 units Lactulose (Lactulose Liq) 30 ml PO DAILY PRN PRN Reason: CONSTIPATION Last Admin: 09/16/17 10:40 Dose: 30 ml Latanoprost (Xalatan 0.005% Opth Drops) 1 drop EACH EYE DAILY@1800 [facility] Last Admin: 09/15/17 19:04 Dose: 1 drop [facility] Last Admin: 09/16/17 10:37 Dose: 1,000 mg Metoprolol Succinate (Toprol Xl) 25 mg PO TID [facility] Last Admin: 09/16/17 13:27 Dose: 25 mg Morphine Sulfate (Morphine Inj) 2 mg IV.PUSH Q1H PRN PRN Reason: Break through pain Last Admin: 09/13/17 12:07 Dose: 2 mg Ondansetron HCl (Zofran Inj) 4 mg IV.PUSH Q6H PRN PRN Reason: NAUSEA OR VOMITING Last Admin: 09/13/17 12:07 Dose: 4 mg Patient Own: ( Canagliflozin [ Invokana] 100 Mg) 0 each PO DAILY [facility] Ramipril (Altace) 10 mg PO BID [facility] Last Admin: 09/16/17 10:40 Dose: 10 mg Sodium Chloride (Ns Flush) 2 ml IV.FLUSH UNSCH PRN PRN Reason: FLUSH AFTER USING IV ACCESS Allergies Allergy/AdvReac Type Severity Reaction Status Date / Time No Known Allergies Allergy Unverified 09/13/17 11:42 Home Medications Medication Instructions Recorded Confirmed Type canagliflozin [Invokana] 100 mg PO DAILY 09/13/17 09/13/17 History glyburide 5 mg PO DAILY 09/13/17 09/13/17 History latanoprost [Xalatan] 1 drp OPHTHALMIC (EYE) QPM 09/13/17 09/13/17 History metformin 1,000 mg PO BID 09/13/17 09/13/17 History metoprolol succinate 25 mg PO TID 09/13/17 09/13/17 History omeprazole magnesium [Prilosec] 10 mg PO BID 09/13/17 09/13/17 History ramipril 10 mg PO BID 09/13/17 09/13/17 History rosuvastatin [Crestor] 10 mg PO DAILY 09/13/17 09/13/17 History Results - Labs CBC & Chem 7: 09/16/17 04:33 09/16/17 04:33 Laboratory Results - last 24 hr 09/15/17 09/16/17 09/16/17 23:09 04:33 04:33 WBC 6.9 RBC 2.86 L Hgb 9.2 L Hct 26.2 L MCV 91.6 MCH 32.1 MCHC 35.0 RDW 13.9 Plt Count 124 L MPV 9.7 Neut % (Auto) 64.6 Lymph % (Auto) 18.1 [place] % (Auto) 11.8 H Eos % (Auto) 4.8 H Baso % (Auto) 0.7 Neut # (Auto) 4.5 Lymph # (Auto) 1.3 [place] # (Auto) 0.8 Eos # (Auto) 0.3 Baso # (Auto) 0.0 WBC Differential . Differential Comment Auto diff final Sodium 139 Potassium 4.4 Chloride 106 Carbon Dioxide 27.7 Anion Gap 5 BUN 16 Creatinine 1.17 Estimated GFR 59 L POC Glucose 241 H Random Glucose 144 H Calcium 8.2 L 09/16/17 09/16/17 06:47 12:09 WBC RBC Hgb Hct MCV MCH MCHC RDW Plt Count MPV Neut % (Auto) Lymph % (Auto) [place] % (Auto) Eos % (Auto) Baso % (Auto) Neut # (Auto) Lymph # (Auto) [place] # (Auto) Eos # (Auto) Baso # (Auto) WBC Differential Differential Comment Sodium Potassium Chloride Carbon Dioxide Anion Gap BUN Creatinine Estimated GFR POC Glucose 158 H 201 H Random Glucose Calcium Microbiology 09/14/17 18:45 Wound - Ankle Gram Stain - Final 09/14/17 18:45 Wound - Ankle Wound Culture - Preliminary No growth in 48 hours Assessment and Plan - Assessment (1) Laceration of foot, right Code(s): S91.311A - Laceration without foreign body, right foot, initial encounter Status: Acute (2) Fracture of fifth metatarsal bone of right foot Code(s): S92.351A - Displaced fracture of fifth metatarsal bone, right foot, initial encounter for closed fracture Status: Acute (3) Fracture of cuboid bone of right foot with routine healing Code(s): S92.211D - Displaced fracture of cuboid bone of right foot, subsequent encounter for fracture with routine healing Status: Acute (4) Laceration of right lower leg with foreign body Code(s): S81.821A - Laceration with foreign body, right lower leg, initial encounter Status: Acute - Plan Ok with discharge to rehab with anticoagulant and 7 days oral broad spectrum antibiotics on Tuesday at the earliest. wiring technician to re-application of short posterior splint. Nonweightbearing right lower extremity. Will plan to remove external fixator in approximately 6-8 weeks pending serial xrays as outpatient. Please consult once patient goes to rehab, needs wound check in 4-5 days.
[2017-09-16] MEDS: Latanoprost 0.005% Opth Drops 2.5 ML Bottle EACH EYE SCH (18:34)
[2017-09-17] MEDS: Insulin NovoLIN Regular Correctional Sugar Inj SQ SCH ×3 (00:07→12:00)
[2017-09-17] MEDS: ceFAZolin Inj 2,000 MG in Sodium Chlor 0.9% Inj 80 ML IV.SIG SCH ×2 (01:22→09:00)
[2017-09-17] MEDS: Chlorhexidine Gluconate 2% 1 Pack (2 Cloths) TOPICAL SCH (05:46)
[2017-09-17 09:37] VITALS: RESP 18
[2017-09-17] MEDS: Enoxaparin Inj 40 MG/0.4 ML Syringe SQ SCH (09:55)
[2017-09-17] MEDS: Famotidine 20 MG Tablet PO SCH (09:56)
[2017-09-17] MEDS: Ramipril 5 MG Capsule PO SCH (09:56)
[2017-09-17] MEDS: Docusate Sodium 100 MG Capsule PO SCH (09:56)
[2017-09-17] MEDS ORDERED: Lactobacillus Acidophilus/L. Spores Tablet PO SCH (11:00)
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
[2017-09-17 12:55] VITALS: BP 178/81; PULSE 86; TEMP 98.4; O2SAT 97
--- NOTE | 2017-09-17 13:20 | P.PN ---
Subjective Interval history: No acute event overnight Patient stable Afebrile Physical Exam Vital signs: Vital Signs 09/16/17 20:00 09/17/17 00:00 09/17/17 04:00 Temperature 98.1 F 98 F 98.3 F Pulse Rate 73 75 80 Respiratory Rate 17 18 17 Blood Pressure 152/68 H 148/66 H 188/79 H Pulse Oximetry 97 97 96 09/17/17 05:05 09/17/17 08:00 09/17/17 12:54 Temperature 98.7 F 98.4 F Pulse Rate 80 86 Respiratory Rate 18 18 Blood Pressure 162/89 H 145/80 H 178/81 H Pulse Oximetry 95 97 Intake & Output 09/16/17 09/17/17 09/17/17 18:59 06:59 18:59 Intake Total 100 / 100 460 / 460 Output Total 300 / 300 Balance 100 / 100 160 / 160 Weight 86 kg Intake: IV 100 / 100 100 / 100 Ancef Inj 2,000 MG In NS Inj 80 100 / 100 100 / 100 ML @ 200 mls/hr IV.SIG Q8H ADA Rx#:[id number] Oral 360 / 360 Output: Urine 300 / 300 Narrative: GENERAL: NAD SKIN: Warm and dry. BUE with dry dressings in place. HEAD:Normocephalic. CARDIOVASCULAR: Regular rate and rhythm. RESPIRATORY: No accessory muscle use. Clear to auscultation. Breath sounds equal bilaterally. GASTROINTESTINAL: Abdomen soft, non-tender, nondistended. + BS MUSCULOSKELETAL: Extremities without cyanosis, +1 RLE edema. RLE soft splint with ex-fix in place. Ecchymosis noted to right great toe and 2nd metatarsal. MAEW, + perfused, toes warm NEUROLOGICAL: Awake and alert. Normal speech. Results - Labs CBC & Chem 7: 09/16/17 04:33 09/16/17 04:33 Laboratory Results - last 24 hr 09/16/17 09/17/17 09/17/17 18:17 00:04 05:50 POC Glucose 164 H 134 H 140 H 09/17/17 11:47 POC Glucose 174 H Microbiology 09/14/17 18:45 Wound - Ankle Gram Stain - Final 09/14/17 18:45 Wound - Ankle Wound Culture - Final No growth in 72 hours (aerobically and anaerobically ) - Procedures 09/13: I&D RIGHT foot with closure of complex laceration. Ex-fix RIGHT foot fx. Assessment and Plan - Plan 87-year-old man with Concussion Supportive care Avoid second head injury Post-concussive education RIGHT anterior leg degloving, RIGHT calcaneus fx, RIGHT cuboid fx extending to the metatarsal joints, RIGHT 4th, 5th metatarsal fxs Podiatry consulted 09/13: I&D RIGHT foot with closure of complex laceration. Ex-fix RIGHT foot fx. 09/14: Wound vac removed Podiatry to determine further plan of treatment IV Ancef q8h per Podiatry Pain management accordingly NWB RLE OOB-PT/OT ordered Rehab placement Diabetes, chronic -Accu checks with SSI -Cont home medications Hypertension, chronic -Continue home medications DVT prophylaxis: SCDs, lovenox
--- NOTE | 2017-09-19 12:48 | MP ---
cc: Irina Jara DPNahun DATE OF OPERATION: INDICATIONS: The patient presented initially with a degloving injury to his right lower extremity, a very complicated laceration with debris within the area to the distal aspect of the right lower leg, extending medially to the foot; however, he was also noted on x-ray to have fracturing to the lateral column of the foot, which was closed in nature. There did not appear to be any soft tissue damage anywhere communicating with the fractures to the lateral foot. I discussed with the patient that he needed to undergo debridement and irrigation of the right medial foot with likely external fixation of right lateral foot fractures. He agreed to move forward with surgery after risks, benefits and potential complications were described in detail. DESCRIPTION OF PROCEDURE: He was seen in preop holding by myself, nursing staff, and anesthesia, where the correct patient, side and site were all confirmed to be correct, in the right foot, ankle and lower leg areas. He was then taken to the surgical suite in supine position. The right lower extremity was prepped and draped in normal sterile fashion. After timeouts were performed per facility protocol, he had the right open laceration areas addressed. In the right anterior ankle and lower leg, there was noted to be a degloving injury that originated medially, traveled laterally across the anterior ankle area and the superficial fatty layer. There did not appear to be any exposed bone or any involvement of the deep neurovascular bundles. They all appeared to remain intact, with both palpable and dopplerable pulses from the dorsalis pedis and posterior tibial arteries. No gross contamination or gross debris was noted. There was a small amount of fine debris. The tissue did appear viable and was bleeding readily. At the time of surgery, no large vessel involvement again was noted. The degloving continued from that area to the anterior ankle distally and medially to the rearfoot area, but also not including any deep tendinous or neurovascular structures there as well. There was another small puncture area noted with mild degloving across the dorsal foot that extended from an open area approximately 1 cm open from the dorsal first interspace across to the dorsal third interspace area. The lateral aspect of the forefoot, midfoot and hindfoot remained closed, with no degloving noted, no open wound at all, which is where the fractures were noted. The degloved areas first were copiously irrigated with 12 liters normal saline and gentamicin with excisional debridement performed of all nonviable tissue and debris down to healthy bleeding subcutaneous tissue to the level using a #15 blade, a curette and a rongeur of both areas to the large medial anterior degloved ankle area and hindfoot as well as the separate area to the dorsal forefoot. Complex closure was then performed using 2-0 nylon to both the dorsal foot and the anterior ankle and medial rearfoot areas. Upon debridement and irrigation, there was no further gross contamination noted, and all tissue did appear to be viable at that time. C-arm guidance was then utilized after closure had taken place medially to identify the fractures to the lateral column, which appeared to be at the lateral calcaneocuboid joint area as well as the proximal 5th metatarsal area, respectively. A C-arm was utilized in order to place a 4 mm half pin into the lateral aspect of the calcaneus and a 3.0 mm extending to 4 mm pin into the midshaft fifth metatarsal area laterally as well as another 3.0 to 4 mm half pin into the lateral cuneiform area, respectively. A multiplanar external fixation device was applied in order to achieve distraction of the calcaneocuboid joint, all while achieving and maintaining reduction of the fifth metatarsal base fracture, all under C-arm guidance in order to stabilize the lateral foot. Following placement of the external fixation device, dressing was applied to the degloved areas using a small wound VAC along the incision in order to achieve reduction of space and to allow drainage, and it will be left on for 24 hours. A dressing consisting of Xeroform, 4 x 4's, ABD, cast padding and a short posterior splint were then applied to all remaining areas. The patient will be nonweightbearing to the right lower extremity. He will continue IV antibiotics for 24 hours and will need home health for pin site care and dressing change. I do not anticipate any further surgery will be required. Culture was also taken of the right lower extremity degloved area. SHORT OPERATIVE NOTE SURGEON: Irina Jara DPM DIRECTOR OF COMMUNITY EDUCATION: Staff. PREOPERATIVE DIAGNOSES: 1. Fracture fifth metatarsal bone, right foot, closed. 2. Fracture of cuboid bone, right foot, closed. 3. Complicated laceration right lower extremity with foreign body. POSTOPERATIVE DIAGNOSIS: 1. Fracture fifth metatarsal bone, right foot, closed. 2. Fracture of cuboid bone, right foot, closed. 3. Complicated laceration right lower extremity with foreign body. PROCEDURE PERFORMED: 1. Irrigation and debridement right foot, with closure of complex laceration. 2. External fixation multiplanar device right foot fractures. PATHOLOGY: Culture, right leg/ankle. PROPHYLAXIS: Two grams Ancef IV and 80 mg gentamicin IV preoperatively. TYPE OF ANESTHESIA: General endotracheal anesthesia. ESTIMATED BLOOD LOSS: 100 mL CONDITION: Stable to PACU. DISPOSITION: Nonweightbearing right lower extremity. Continue IV antibiotics, and will monitor the wound to determine if further treatment is required in the future. NATALIA Mckinney/leonora , 11:31 AM , 11:42 AM
== END 2017-09-17 14:40 ==
LOC: NEPI 09:58 → EDBD 10:29 → NEDA 10:29 → N03 10:30 → N06 09-14 19:43
PROVIDERS: ADMIT Surgery; ATTEND Surgery